=== PATIENT | female | born 1980 | race Two or more races ===

== ENCOUNTER 2017-02-08 09:28 | Emergency (ER) | payer MEDICAID ==
[~2017-02-08] VITALS: Ht 167.6 cm; Wt 79.4 kg
[2017-02-08 09:38] VITALS: BP 127/81
== END 2017-02-08 10:50 | disposition home or self-care (01) ==
LOC: ER 09:43
DX: J01.90 Acute sinusitis, unspecified (principal); H66.91 Otitis media, unspecified, right ear

== ENCOUNTER 2021-02-13 14:50 | Emergency (ER) | payer MEDICAID ==
[~2021-02-13] VITALS: Ht 167.6 cm; Wt 88.5 kg
[2021-02-13 21:15] LABS: Basophils # (auto) 0 10 ^3/uL (0-0.2); Monocytes # (auto) 0.5 10 ^3/uL (0-1.3); Red Blood Cells 3.61 10^6/uL (4.0-5.20)
[2021-02-13 21:23] LABS: Urine Bacteria NONE SEEN /hpf (None Seen); Urine Blood 3+ /uL (Negative); Urine Mucus MODERATE (None Seen); Urine Specific Gravity 1.033 (1.001-1.035); Urine WBC 12 /hpf (0 - 5)
[2021-02-13 21:23] LABS: Basophils % (auto) 0.6 % (0.0-2.0); Eosinophils # (auto) 0.3 10 ^3/uL (0-0.8); Eosinophils % (auto) 3.7 % (0.0-7.0); Hematocrit 28.8 % (36.0-46.0); Lymphocytes # (auto) 2.1 10 ^3/uL (0.4-5.4); Lymphocytes % (auto) 29.8 % (10.0-50.0); Mean Corpuscular Hemoglobin 24.9 pg (28.0-32.0); Mean Corpuscular Hgb Conc. 31.2 g/dL (32.0-36.0); Mean Corpuscular Volume 79.7 fL (80.0-100.0); Monocytes % (auto) 6.9 % (0.0-12.0); Neutrophils # (auto) 4.2 10 ^3/uL (1.6-8.6); Platelet Count (auto) 351 10^3/uL (140-450)
[2021-02-13 22:00] VITALS: BP 136/78
== END 2021-02-13 22:34 | disposition home or self-care (01) ==
LOC: ER 14:50
DX: N93.9 Abnormal uterine and vaginal bleeding, unspecified (principal); N88.8 Other specified noninflammatory disorders of cervix uteri; D64.9 Anemia, unspecified
CPT/HCPCS: 36415; 76830; 76856; 81001; 84702; 85025